=== PATIENT | male | born 1960 | race Caucasian/White ===

== ENCOUNTER 2016-10-21 10:17 | Emergency (ER) | payer BC ==
--- NOTE | 2016-10-21 12:31 | EDM.PDOC ---
[id number]: CAME FROM [facility] Time Seen by Provider: 10/21/16 10:45 Source: Reports: Patient, Family, Provider History Limitations: Reports: No limitations - History of Present Illness INITIAL COMMENTS - FREE TEXT/NARRATIVE: 56-year-old male who is been having intermittent vertigo and dizziness over the past week. It started very suddenly when he was underneath a vehicle and as he was standing he felt like his eyes were fluttering and he was dizzy. Since that time has been feeling tired, has recurring vertigo or dizziness with movement or standing and when in to see his primary doctor for a checkup. His vitals were stable, orthostatics were stable, his physical exam was normal however EKG showed "type II block". He was sent to ER for further evaluation. He denies any shortness of breath, palpitations, nausea vomiting, rash or joint pains. Severity: mild - Related Data Allergies/ADRs: Allergies Allergy/AdvReac Type Severity Reaction Status Date / Time No Known Allergies Allergy Verified 10/21/16 10:35 Home Meds: Home Meds NK [No Known Home Meds] 10/21/16 [History] Past Medical History Musculoskeletal History: Reports: Fracture - Past Surgical History GI Surgical History: Reports: Hernia repair/other Social & Family History - Tobacco Use Smoking Status *Q: Never Smoker - Alcohol Use Days Per Week of Alcohol Use: 5 Number of Drinks Per Day: 2 Total Drinks Per Week: 10 - Recreational Drug Use Recreational Drug Use: No ED ROS GENERAL - Review of Systems Review Of Systems: See Below Constitutional: Reports: weakness, fatigue. Denies: fever, chills HEENT: Reports: Other (Left eye seems droopy at times) Cardiovascular: Reports: Other (Occasional dyspnea with activity). Denies: Chest pain, Palpitations GI/Abdominal: Denies: Abdominal pain, Nausea, Vomiting Musculoskeletal: Reports: no symptoms Neurological: Reports: Dizziness. Denies: Headache Psychiatric: Reports: No symptoms ED EXAM, GENERAL - Physical Exam Exam: See Below Exam Limited By: No limitations General Appearance: alert, no apparent distress Eye Exam: bilateral eye: EOMI, other (No jaundice, no nystagmus) Respiratory/Chest: no respiratory distress, lungs clear Cardiovascular: regular rate, rhythm. No: extra beats GI/Abdominal: non tender Extremities: No: pedal edema Neurological: alert, oriented, no motor/sensory deficits Psychiatric: normal affect, normal mood Skin Exam: Warm, Dry EKG INTERPRETATION Rhythm: NSR Course - Vital Signs Last Recorded V/S: Last Vital Signs Temp 97.9 F 10/21/16 10:33 Pulse 59 L 10/21/16 12:56 Resp 14 10/21/16 12:56 BP 128/76 10/21/16 12:56 Pulse Ox 99 10/21/16 12:56 - Orders/Labs/Meds Orders: Active Orders 24 hr Category Date Time Status EKG Documentation Completion [RC] ASDIRECTED Care 10/21/16 11:08 Active EKG 12 Lead [EK] Routine Ther 10/21/16 11:08 Ordered Labs: Laboratory Tests 10/21/16 10/21/16 Range/Units 11:15 11:15 WBC 6.1 (4.5-11.0) K/uL RBC 4.34 (4.30-5.90) M/uL Hgb 13.6 (12.0-15.0) g/dL Hct 40.6 (40.0-54.0) % MCV 94 (80-98) fL MCH 31 (27-31) pg MCHC 34 (32-36) % Plt Count 187 (150-400) K/uL Neut % (Auto) 58 (36-66) % Lymph % (Auto) 27 (24-44) % Hanson % (Auto) 12 H (2-6) % Eos % (Auto) 3 (2-4) % Baso % (Auto) 1 (0-1) % Sodium 145 (140-148) mmol/L Potassium 4.4 (3.6-5.2) mmol/L Chloride 108 (100-108) mmol/L Carbon Dioxide 29 (21-32) mmol/L Anion Gap 7.6 (5.0-14.0) mmol/L BUN 14 (7-18) mg/dL Creatinine 1.0 (0.8-1.3) mg/dL Est Cr Clr Drug Dosing 83.14 mL/min Estimated GFR (MDRD) > 60 (>60) Glucose 94 (74-106) mg/dL Calcium 8.6 (8.5-10.1) mg/dL Troponin I 0.035 (0.000-0.056) ng/mL - Re-Assessments/Exams Free Text/Narrative Re-Assessment/Exam: 10/21/16 13:06 CBC and BMP were normal, troponin was 0. Because of the persistent recurrent vertigo a head CT was obtained and also negative. Patient will be given some meclizine to take for the weekend and followup with Dr. Turcios next week to discuss a stress test or other further evaluation. Departure - Departure Time of Disposition: 13:52 Disposition: Home, Self-Care 01 Condition: good Clinical Impression: Vertigo Subacute vestibular neuritis Qualifiers: Laterality: unspecified laterality Qualified Code(s): H81.20 - Vestibular neuronitis, unspecified ear Instructions: Vertigo, [id number] Referrals: Jagdish Turcios MD [Primary Care Provider] - Forms: ED Department Discharge Care Plan Goals: Increase activity as tolerated, use meclizine as prescribed for dizziness and recheck next week if not improving satisfactorily. Return sooner if worsening or concerns. - My Orders Last 24 Hours: My Active Orders 10/21/16 11:08 EKG Documentation Completion [RC] ASDIRECTED EKG 12 Lead [EK] Routine - Assessment/Plan Last 24 Hours: My Active Orders 10/21/16 11:08 EKG Documentation Completion [RC] ASDIRECTED EKG 12 Lead [EK] Routine
--- NOTE | 2016-10-21 12:38 | CT ---
CT head Total DLP 726 Findings: No mass effect or midline shift. No hemorrhage. No subacute territorial infarct. Patellar intact. Mastoid air cells are clear. The dorsal thickening within the air cells and moderate mucosal thinning within the right sphenoid sinus. Impression: 1. No acute intracranial process by CT.
[2016-10-21 12:56] VITALS: BP 128/76
== END 2016-10-21 13:30 | disposition home or self-care (01) ==
LOC: JP.ED 10:17
DX: R42 Dizziness and giddiness (principal); Z98.890 Other specified postprocedural states
CPT/HCPCS: 36415; 70450; 70450-26; 80048; 84484; 85025; 93005; 99284-25